=== PATIENT | male | born 1985 | race Caucasian/White ===

== ENCOUNTER → 2018-04-01 | Emergency (ER) | payer SELFPAY ==
[~2018-04-01] VITALS: Ht 188 cm; Wt 70.5 kg
[~2018-04-01] MED LIST: HYDROXYZINE PA100 MG
[2018-04-01 19:39] VITALS: BP 168/75; Ht 188 cm; Wt 70.5 kg
== END | disposition home or self-care (01) ==
LOC: D.ER 18:20
DX: A64 Unspecified sexually transmitted disease (principal)

== ENCOUNTER 2019-06-24 18:44 | Emergency (ER) | payer OTHER ==
[~2019-06-24] VITALS: Ht 188 cm; Wt 70.5 kg
[2019-06-24 19:26] VITALS: Ht 188 cm; Wt 70.5 kg
[2019-06-24] MEDS ORDERED: FLUTICASONE PRO16 GM NASAL (20:27)
[2019-06-24] MEDS ORDERED: AUGMENTIN 875-11 TAB PO (20:27)
[2019-06-24 20:37] VITALS: BP 125/79
== END 2019-06-24 20:37 | disposition home or self-care (01) ==
LOC: D.ER 18:44
DX: J01.90 Acute sinusitis, unspecified (principal); Z72.0 Tobacco use

== ENCOUNTER 2019-10-30 12:17 | Inpatient (IN) | payer OTHER ==
[~2019-10-30] VITALS: Ht 188 cm; Wt 71.2 kg
--- NOTE | ~2019-10-30 | OP ---
PATIENT NAME: DWIGHT MARTINEZ MEDICAL RECORD: [id number] LOCATION:[id number] ADMISSION DATE:10/30/19 SURGEON: ALEJANDRO LOPEZ MD DATE OF OPERATION: 10/31/2019 PREOPERATIVE DIAGNOSIS: Lymphadenopathy. POSTOPERATIVE DIAGNOSIS: Lymphadenopathy. PROCEDURE: Right inguinal lymph node excisional biopsy. SURGEON: Alejandro Lopez MD REPORT OF PROCEDURE: The patient's right groin was prepped and draped in sterile fashion. A longitudinal incision was made on the upper inner right thigh overlying a large lymph node. We dissect down through the subcutaneous tissues and encountered a very large firm lymph node that was somewhat fragile as we dissected around it actually split into. We were able to remove these 2 segments of the lymph node and one segment was sent for pathology and the other one was sent for microbiology. We irrigated the wound bed and any bleeding was treated with electrocautery. We ligated any of the surrounding branches using 3-0 silk ties. We then reapproximated the subcutaneous tissues with interrupted 3-0 Vicryl and the skin was closed with running subcutaneous 5-0 Monocryl. A total of 10 mL of 0.25% Marcaine with epinephrine was infused into the surrounding tissues and the wound was dressed appropriately. COMPLICATIONS: None. CONDITION: Stable. ANESTHESIA: General endotracheal and local. BLOOD LOSS: 30 mL. TRANSINT:[id number] Voice Confirmation ID: [id number] DOCUMENT ID: [id number] ALEJANDRO LOPEZ MD CC: [id number] DICTATION DATE: 10/31/191426 PERSONAL CLOTHING LAUNDRY AIDE: 10/31/192228 DIS IN 10/31/19 [id number] [place] [id number]
[~2019-10-30 12:17] MED LIST changes: +AUGMENTIN 875-11 TAB PO; +FLUTICASONE PRO16 GM NASAL
[2019-10-30 14:02] LABS: CALC OSMOLALITY 271 mosm/kg (275-300); CARBON DIOXIDE 31.7 mmol/L (21.0-32.0); CHLORIDE - SERUM 102 mmol/L (98-107); CREATININE - SERUM 1.1 mg/dL (0.6-1.3); GLUCOSE 91 mg/dL (74-106); POTASSIUM - SERUM 4.1 mmol/L (3.5-5.1); SODIUM 136 mmol/L (136-145); UREA NITROGEN 12 mg/dL (7-18); eGFR NON AFRICAN AMERICAN 80 mL/min (90-120)
[2019-10-30 14:06] LABS: BASOPHILS 0.4 % (0-2); EOSINOPHILS 2.2 % (0-7); HEMATOCRIT 45.6 % (42.0-54.0); HEMOGLOBIN 15.7 g/dL (13.5-17.5); IMMATURE GRANULOCYTES 0.3 % (0-5); LYMPHOCYTES 17.1 % (15-50); MCH 31.3 pg (26.0-34.0); MCHC 34.4 g/dL (31.0-37.0); MEAN PLATELET VOLUME 9.3 fL (7.4-10.4); MONOCYTES 7.6 % (2-11); NEUTROPHILS 72.4 % (40-80); PLATELET COUNT 253 10x3/uL (130-400); RBC 5.01 10x6/uL (4.20-6.10); RDW 14.2 % (11.5-14.5); WBC 11.8 10x3/uL (4.8-10.8)
[2019-10-30 14:11] LABS: ALKALINE PHOSPHATASE 80 U/L (30-120); ALT (SGPT) 20 U/L (10-68); AMYLASE - SERUM 60 U/L (25-115); BILIRUBIN - TOTAL 0.61 mg/dL (0.2-1.3); LIPASE 137 U/L (73-393); PROTEIN - SERUM 7.6 g/dL (6.4-8.2); TROPONIN-I < 0.017 ng/mL (0.000-0.060)
[2019-10-30 14:59] LABS: BILIRUBIN NEGATIVE (NEGATIVE); GLUCOSE NEGATIVE (NEGATIVE); KETONE NEGATIVE (NEGATIVE); NITRITE NEGATIVE (NEGATIVE); UROBILINOGEN NORMAL (NORMAL)
--- NOTE | 2019-10-30 20:43 | NUR ---
REPORT CALLED TO NURSE CASSIUS. FOR NOT READY. PT DENIES NEEDS. CALL LIGHT WITHIN REACH WILL CONTINUE TO MONITOR.
[2019-10-30] MEDS ORDERED: ATIVAN0.5 MG PO (22:23)
[2019-10-30 22:26] VITALS: BP 119/65; BMI 20.2
[2019-10-31] VITALS: BP 119/65
[2019-10-31 04:00] VITALS: BP 96/58
--- NOTE | 2019-10-31 04:01 | NUR ---
ASSESSED AT THE TIME OF ADMIT. PT IS ALERT AND ORIENTED, ABLE TO VERBALIZE NEEDS. HE WAS SEEN BY CECILY PFEIFFER AND ORDERS WERE NOTED. UP AD CARIE TO THE BATHROOM. PT REQUESTED ATIVAN AND RECEIVED IT AFTER ORDERS WERE OBTAINED. 10 YR OLD DAUGHTER IS IN THE ROOM WITH PATIENT. AT TIMES IN THE BED AND OTHER IN THE LEAN BACK CHAIR. NO PROBLEMS NOTED WITH CHILD.
[2019-10-31 06:58] LABS: ALBUMIN 3.3 g/dL (3.4-5.0); ALKALINE PHOSPHATASE 67 U/L (30-120); CALC OSMOLALITY 272 mosm/kg (275-300); CALCIUM 8.4 mg/dL (8.5-10.1); CARBON DIOXIDE 26.6 mmol/L (21.0-32.0); CHLORIDE - SERUM 105 mmol/L (98-107); GLUCOSE 80 mg/dL (74-106); MAGNESIUM - SERUM 2.2 mg/dL (1.8-2.4); PHOSPHOROUS 3.3 mg/dL (2.5-4.9); POTASSIUM - SERUM 3.9 mmol/L (3.5-5.1); PROTEIN - SERUM 6.3 g/dL (6.4-8.2); SODIUM 137 mmol/L (136-145); UREA NITROGEN 13 mg/dL (7-18); eGFR NON AFRICAN AMERICAN 90 mL/min (90-120)
[2019-10-31 06:59] LABS: BASOPHILS 0.5 % (0-2); EOSINOPHILS 4.3 % (0-7); HEMOGLOBIN 14.9 g/dL (13.5-17.5); IMMATURE GRANULOCYTES 0.2 % (0-5); LYMPHOCYTES 25.6 % (15-50); MCHC 33.9 g/dL (31.0-37.0); MCV 91.7 fL (80.0-100.0); MEAN PLATELET VOLUME 9.6 fL (7.4-10.4); MONOCYTES 9.8 % (2-11); NEUTROPHILS 59.6 % (40-80); PLATELET COUNT 249 10x3/uL (130-400); RDW 14.2 % (11.5-14.5)
--- NOTE | 2019-10-31 07:00 | NUR ---
PT HAS SLEPT MOST OF THE NIGHT WITH NO COMPLAINTS AND DAUGHTER ASLEEP IN BEDSIDE CHAIR.
[2019-10-31 07:01] LABS: WBC 8.2 10x3/uL (4.8-10.8)
[2019-10-31 07:02] LABS: ALT (SGPT) 12 U/L (10-68)
[2019-10-31 07:10] LABS: APTT 33.3 SECONDS (22.8-39.4); INR 1.05 (0.85-1.17); PROTIME 13.7 SECONDS (11.6-15.0)
[2019-10-31 08:09] VITALS: BP 109/62
--- NOTE | 2019-10-31 09:03 | NUR ---
PT LYING IN BED WITH DR AT BEDSIDE, DAUGHTER ASLEEP IN CHAIR AT BEDSIDE, DR LOPEZ WENT OVER TESTS TO BE DONE AND PT IS CONCERNED THAT CONDITION MAY BE LYMPHOMA PT SIGNIFICANT OTHER CAME UP IN TEARS STATING SHE WAS TOLD HE HAS LYMPOMA, EXPLAINED THAT NO TESTS HAVE BEEN DONE YET AND WE WILL NOT KNOW UNTIL RESULTS ARE BACK POSSIBLY SUNDAY. PT STATES O NEEDS AT THIS TIME. DAUGHTER ASLEEP AT BEDSIDE, CONTINUE WITH PLAN OF CARE
--- NOTE | 2019-10-31 10:33 | NUR ---
PT C/O PAIN IN GROIN AREA AT AN 8, ADMINISTERED PRN PAIN MEDICATION ALONG WITH NAUSEA MEDICATION. NO OTHER NEEDS AT THIS TIME. CONTINUE WITH PLAN OF CARE
--- NOTE | 2019-10-31 10:33 | NUR ---
SPOKE WITH PATIENT. HE SMOKES BUT IS REFUSING THE PATCH DUE TO BREAKING OUT FROM IT IN THE PAST. WILL LET US KNOW IF HE CHANGES HIS MIND.
[2019-10-31 12:12] VITALS: BP 106/59
--- NOTE | 2019-10-31 12:26 | NUR ---
PATIENT IS WITHOUT DISTRESS.CALL LIGHT IN REACH
--- NOTE | 2019-10-31 12:36 | NUR ---
PREOP PT PER SURGERY, WHILE PUSHING MEDICATIONS PT VOICED CONCERNS OF HAVING NIGHT SWEATS AND CONSTNTLY BEING HOT, STATED PCP IS [facility] AND CONCERNS WERE VOICED BUT NO FURTHER ACTION WAS TAKEN, ENCOURAGED PT TO SPEAK WITH PCP BUT PT WANTS TO SPEAK WITH HOSPITALIST AND GET SOMETHING UPON DC. NO OTHER NEEDS AT THIS TIME. CONTINUE WITH PLAN OF CARE
--- NOTE | 2019-10-31 12:59 | NUR ---
PT SIGNIFANT OTHER AT NURSING STATIOON CONCERN THAT CANCER HAS TRAVELED TO OTHER PLACES OF THE BODY. CALM PT SIGNIFICANT OTHER DOWN AND ASSURED HER THAT WE ARE NOT CERTAIN WHAT PT HAS AND IF IT IS OR IS NOT CANCER BECAUSE TESTS HAVE NOT BEEN RUN YET. PT DAUGHTER AT BEDSIDE AND ENCOURAGED PT AND GF TO NOT TALK LIKE THAT IN FRONT OF MINOR AND THAT DOCTOR WILL TALK TO FAMILY AFTER PROCEDURE
[2019-10-31 14:13] VITALS: Ht 188 cm; Wt 71.2 kg
[2019-10-31] MEDS ORDERED: HYDROCODON-ACE1 EA10 PO (14:28)
[2019-10-31 14:55] VITALS: BP 115/68
[2019-10-31] MEDS ORDERED: DOXYCYCLINE HY100 M2 PO (15:00)
[2019-10-31 15:37] VITALS: BP 110/66
--- NOTE | 2019-10-31 16:00 | NUR ---
PT AND SIGNIFICANT OTHER STATE THAT THEY ARE UNAWARE OF WHAT THEY NEED TO DO NEXT. EXPLAINED PATHOLOGY TAKES AT LEAST 3 DAYS BEFORE RESULTS COME BACK. PT IS TO CALL FOR 1 W[address] FO[address] UP. PAGED DR LOPEZ JUST IN CASE ANY OTHER ORDERS NEEDED TO BE TOLD. PT WANTS MEDICATION FOR NIGHT SWEATS WELL CONSTIPATION ENCOURAGED PT TO GET OVER THE COUNTER STOOL SOFTENER AND METAMUCIL. NO OTHER NEEEDS COTINUE WITH PLAN OF CARE
[2019-11-02 15:08] LABS: ACID FAST SMEAR Negative (()); AFB SPECIMEN PROCESSING Concentration (())
[2019-11-03 14:09] LABS: FUNGUS STAIN Final report (())
== END 2019-10-31 16:28 | disposition home or self-care (01) | DRG 804 ==
LOC: D.ER 12:17 → D.MS 17:17
PROVIDERS: Family Medicine; Family Medicine Adult Medicine; ADMIT Family Medicine; ATTEND Family Medicine
PROC: 07BH0ZX Excision of Right Inguinal Lymphatic, Open Approach, Diagnostic (ICD-10-PCS; principal; 2019-10-30)
DX: R59.1 Generalized enlarged lymph nodes (principal); Z87.891 Personal history of nicotine dependence